=== PATIENT | female | born 1970 | race African-American/Black ===

== ENCOUNTER 2018-12-05 09:54 | Emergency (ER) | payer MEDICARE, MEDICAID ==
[~2018-12-05] VITALS: Ht 170.2 cm; Wt 109.0 kg
[2018-12-05 17:03] LABS: CLARITY URINE CLEAR (CLEAR); COLOR URINE YELLOW (YELLOW); KETONES URINE NEGATIVE (NEGATIVE); LEUKOCYTE ESTERASE URINE NEGATIVE (NEGATIVE); NITRITE URINE NEGATIVE (NEGATIVE); OCCULT BLOOD URINE NEGATIVE (NEGATIVE); PH URINE 5.5 (4.5-8.0); PROTEIN URINE NEGATIVE (NEGATIVE); SPECIFIC GRAVITY URINE 1.015 (1.005-1.030); UROBILINOGEN URINE 0.2 E.U./dL (0.2-1.0)
[2018-12-05] MEDS ORDERED: OXYCODONE HCL/ACETAMINOPHEN 5/325MG TABLET PO ONE (17:15)
[2018-12-05 17:40] VITALS: BP 159/80
== END 2018-12-05 17:41 | disposition home or self-care (01) ==
LOC: ER 09:54
DX: S20.02XA Contusion of left breast, initial encounter (principal); S20.01XA Contusion of right breast, initial encounter; S30.0XXA Contusion of lower back and pelvis, initial encounter; V03.90XA Pedestrian on foot injured in collision with car, pick-up truck or van, unspecified whether traffic or nontraffic accident, initial encounter; Y93.89 Activity, other specified; Y92.89 Other specified places as the place of occurrence of the external cause; Y99.8 Other external cause status
CPT/HCPCS: 71045; 72100; 99284

== ENCOUNTER 2019-01-30 12:53 | Emergency (ER) | payer MEDICARE, MEDICAID ==
[~2019-01-30] VITALS: Ht 167.6 cm; Wt 111.0 kg
[2019-01-30 15:49] LABS: BASOPHILS % 0.8 % (0.0-2.0); EOSINOPHILS % 0.8 % (0.0-5.0); HEMATOCRIT. 42.5 % (36.0-48.0); HEMOGLOBIN. 14.3 g/dL (12.0-16.0); LYMPHOCYTES % 33.8 % (20.0-50.0); MEAN CORPUSCULAR HEMOGLOBIN 30.2 pg (28.0-32.0); MEAN CORPUSCULAR VOLUME 89.8 fL (81.0-99.0); MEAN PLATELET VOLUME 10.4 fl (7.4-10.4); MONOCYTES % 8.4 % (2.0-8.0); NEUTROPHILS % 56.2 % (40.0-76.0); PLATELET 170 x1000/uL (130-400); RED BLOOD CELL COUNT 4.74 mill/uL (4.2-5.4); RED CELL DISTRIBUTION WIDTH 13.5 % (11.6-14.6)
[2019-01-30 15:58] LABS: CHLORIDE 106 mEq/L (98-107)
[2019-01-30 16:13] VITALS: BP 126/79
== END 2019-01-30 16:25 | disposition home or self-care (01) ==
LOC: ER 12:53
DX: I10 Essential (primary) hypertension (principal); E16.2 Hypoglycemia, unspecified; F43.9 Reaction to severe stress, unspecified; F32.9 Major depressive disorder, single episode, unspecified; G40.909 Epilepsy, unspecified, not intractable, without status epilepticus
CPT/HCPCS: 36415; 93005; 99284

== ENCOUNTER 2019-11-03 11:52 | Emergency (ER) | payer MEDICARE, MEDICAID ==
[~2019-11-03] VITALS: Ht 167.6 cm; Wt 110.0 kg
[2019-11-03 12:17] VITALS: BP 160/95
[2019-11-03] MEDS ORDERED: ACETAMINOPHEN 325MG TABLET PO STA (13:11)
== END 2019-11-03 15:24 | disposition home or self-care (01) ==
LOC: ER 11:52
DX: M25.561 Pain in right knee (principal); M25.521 Pain in right elbow; M25.571 Pain in right ankle and joints of right foot; V19.49XA Pedal cycle driver injured in collision with other motor vehicles in traffic accident, initial encounter; Y93.89 Activity, other specified; Y92.89 Other specified places as the place of occurrence of the external cause; Y99.8 Other external cause status; F41.9 Anxiety disorder, unspecified; F32.9 Major depressive disorder, single episode, unspecified; K21.9 Gastro-esophageal reflux disease without esophagitis; I10 Essential (primary) hypertension; Z98.890 Other specified postprocedural states; F12.10 Cannabis abuse, uncomplicated
CPT/HCPCS: 73080; 73560; 73610; 99284

== ENCOUNTER 2020-06-03 02:30 | Emergency (ER) | payer MEDICARE, MEDICAID ==
[~2020-06-03] VITALS: Ht 175.3 cm; Wt 107.0 kg
[2020-06-03] MEDS ORDERED: LORAZEPAM 0.5MG TABLET PO ONE (03:00)
[2020-06-03] MEDS ORDERED: SODIUM CHLORIDE 0.9% 1,000 ML IV ONE (03:11)
[2020-06-03 03:40] LABS: CHLORIDE 108 mEq/L (98-107)
[2020-06-03 04:01] LABS: HEMATOCRIT. 44.9 % (36.0-48.0); HEMOGLOBIN. 14.9 g/dL (12.0-16.0); LYMPHOCYTES % 32.2 % (20.0-50.0); MEAN CORPUSCULAR HEMOGLOBIN 31.3 pg (28.0-32.0); MEAN CORPUSCULAR VOLUME 94.3 fL (81.0-99.0); MEAN PLATELET VOLUME 11.7 fl (7.4-10.4); MONOCYTES % 7.3 % (2.0-8.0); NEUTROPHILS % 58.5 % (40.0-76.0); PLATELET 135 x1000/uL (130-400); RED BLOOD CELL COUNT 4.76 mill/uL (4.2-5.4); RED CELL DISTRIBUTION WIDTH 13.1 % (11.6-14.6)
[2020-06-03 04:06] LABS: CLARITY URINE CLEAR (CLEAR); COLOR URINE YELLOW (YELLOW); KETONES URINE TRACE (NEGATIVE); LEUKOCYTE ESTERASE URINE NEGATIVE (NEGATIVE); NITRITE URINE NEGATIVE (NEGATIVE); OCCULT BLOOD URINE NEGATIVE (NEGATIVE); PROTEIN URINE NEGATIVE (NEGATIVE)
[2020-06-03 04:45] VITALS: BP 154/88
== END 2020-06-03 05:07 | disposition home or self-care (01) ==
LOC: ER 02:30
DX: F41.1 Generalized anxiety disorder (principal); F43.0 Acute stress reaction; I10 Essential (primary) hypertension; G40.909 Epilepsy, unspecified, not intractable, without status epilepticus; F12.90 Cannabis use, unspecified, uncomplicated
CPT/HCPCS: 36415; 80053; 81003; 82962; 85025; 93005; 99284; J7030

== ENCOUNTER 2024-05-24 13:48 | Emergency (ER) | payer MEDICARE, MEDICAID ==
[~2024-05-24] VITALS: Ht 167.6 cm; Wt 114.0 kg
[2024-05-24 14:10] VITALS: O2SAT 100
[2024-05-24] MEDS ORDERED: CLOT15CR27 TP (15:38)
[2024-05-24] MEDS ORDERED: DOXY100T28 MT (15:38)
[2024-05-24] MEDS ORDERED: FLUC150T46 MT (15:38)
[2024-05-24] MEDS ORDERED: CETI10TA6 PO (15:38)
[2024-05-24 17:05] VITALS: BP 163/76; PULSE 68; RESP 18; TEMP 36.78072; O2SAT 99
== END 2024-05-24 17:06 | disposition home or self-care (01) ==
LOC: ER 13:48
DX: L30.4 Erythema intertrigo (principal); F12.90 Cannabis use, unspecified, uncomplicated; F41.9 Anxiety disorder, unspecified; I10 Essential (primary) hypertension
CPT/HCPCS: 99283